=== PATIENT | male | born 1960 | race African-American/Black ===

== ENCOUNTER 2025-03-15 12:11 | Emergency (ER) | payer OTHER ==
[~2025-03-15] VITALS: Ht 188 cm; Wt 154.0 kg
[2025-03-15 12:26] VITALS: O2SAT 96
[2025-03-15 13:01] LABS: BASOPHILS % 0.1 % (0.0-2.0); EOSINOPHILS % 6.1 % (0.0-5.0); HEMATOCRIT. 43.3 % (42.0-52.0); HEMOGLOBIN. 14.2 g/dL (14.0-18.0); LYMPHOCYTES % 36.2 % (20.0-50.0); MEAN PLATELET VOLUME 8.0 fl (7.4-10.4); MONOCYTES % 11.5 % (2.0-8.0); NEUTROPHILS % 46.1 % (40.0-76.0); PLATELET 165 x1000/uL (130-400); RED BLOOD CELL COUNT 4.98 mill/uL (4.7-6.1); RED CELL DISTRIBUTION WIDTH 14.5 % (11.6-14.6)
[2025-03-15 13:14] LABS: CREATININE 1.0 mg/dL (0.6-1.3); UREA NITROGEN BLOOD 11 mg/dL (9-23)
[2025-03-15 14:14] VITALS: BP 149/88; PULSE 73; RESP 16; TEMP 36.5; O2SAT 97
== END 2025-03-15 15:01 | disposition home or self-care (01) ==
LOC: ER 12:11
DX: L03.116 Cellulitis of left lower limb (principal); E11.9 Type 2 diabetes mellitus without complications; I10 Essential (primary) hypertension
CPT/HCPCS: 36415; 80048; 85025; 99283